=== PATIENT | male | born 1950 | race Two or more races ===

== ENCOUNTER 2020-07-02 08:02 | Outpatient (CLI) | payer MEDICARE, OTHER | END 2020-07-02 23:59 | disposition home or self-care (01) | LOC: RAD 08:02 → EDSTATUS 11:00 → RAD 23:59 | PROVIDERS: ATTEND Internal Medicine | DX: Z02.9 Encounter for administrative examinations, unspecified (principal) ==

== ENCOUNTER 2020-07-19 11:38 | Outpatient (CLI) | payer MEDICARE ==
[2020-07-19] MEDS ORDERED: FLUMAZENIL 0.1 MG/1 ML, 5ML ONE (12:32)
[2020-07-19] MEDS ORDERED: MIDAZOLAM 1 MG/ML, 5ML ONE (12:32)
[2020-07-19] MEDS ORDERED: NALOXONE 1 MG/ML, 2ML ONE (12:32)
[2020-07-19] MEDS ORDERED: FENTANYL PF 100 MCG/2ML ONE (12:32)
== END 2020-07-19 23:59 | disposition home or self-care (01) ==
LOC: RAD 11:38
PROVIDERS: ATTEND Internal Medicine
DX: M54.5 Low back pain (principal); Z53.8 Procedure and treatment not carried out for other reasons
CPT/HCPCS: J2250; J3010; J2310

== ENCOUNTER → 2020-08-10 | Outpatient (CLI) | payer MEDICARE | END | disposition home or self-care (01) | LOC: STAR 12:21 | PROVIDERS: ATTEND Anesthesiology | DX: Z01.812 Encounter for preprocedural laboratory examination (principal); Z20.828 Contact with and (suspected) exposure to other viral communicable diseases | CPT/HCPCS: 36415; 87635 ==

== ENCOUNTER 2020-08-24 12:22 | Day surgery (SDC) | payer MEDICARE ==
[~2020-08-24] VITALS: Ht 172.7 cm; Wt 90.5 kg
[2020-08-24] MEDS ORDERED: CHLORHEXIDINE 15 ML UDC ONE (13:21)
[2020-08-24 13:46] VITALS: BP 157/77
[2020-08-24 13:53] LABS: ALANINE AMINOTRANSFERASE 20 U/L (12-78); ALBUMIN 4.3 g/dL (3.4-5.0); ANION GAP 7 mmol/L (5-15); CALCIUM 11.1 mg/dL (8.5-10.1); CHLORIDE 112 mmol/L (98-107); CREATININE 1.12 mg/dL (0.7-1.3)
[2020-08-24 13:55] LABS: ALKALINE PHOSPHATASE 44 U/L (45-117); BILIRUBIN,TOTAL 0.5 mg/dL (0.2-1.0); TOTAL PROTEIN 8.2 g/dL (6.4-8.2)
[2020-08-24] MEDS ORDERED: LACTATED RINGERS 1,000 ML IV SCH (14:00)
[2020-08-24] MEDS ORDERED: CHLORHEXIDINE 15 ML UDC MM ONE (14:00)
[2020-08-24] MEDS ORDERED: GADOTERATE 10 MMOL/20 ML SYR ONE (16:15)
== END 2020-08-24 18:10 | disposition home or self-care (01) ==
LOC: OUT 12:22 → EDSTATUS 14:00 → OUT 18:10
PROVIDERS: ATTEND Internal Medicine
DX: M48.062 Spinal stenosis, lumbar region with neurogenic claudication (principal); I10 Essential (primary) hypertension; E11.9 Type 2 diabetes mellitus without complications; E78.5 Hyperlipidemia, unspecified; Z79.899 Other long term (current) drug therapy; Z79.82 Long term (current) use of aspirin; Z98.890 Other specified postprocedural states; Z82.49 Family history of ischemic heart disease and other diseases of the circulatory system
CPT/HCPCS: 36415; 72158; 80053; 87635; 93005; A9575; J7120